=== PATIENT | female | born 1970 | race Caucasian/White ===

== ENCOUNTER → 2020-06-10 | Outpatient (CLI) | payer OTHER ==
--- NOTE | 2020-06-10 16:36 | KCIC ---
BILATERAL SCREENING MAMMOGRAM, 3-D History: Routine screening. Comparison: Bilateral mammogram January 03, 2016, . Technique: MLO and CC digital tomosynthesis (3D) images obtained. Radiologist reviewed these images on dedicated workstation. Findings: Breast Tissue Density B : There are scattered areas of fibroglandular density. Bilateral glandular nodularity is without significant change from prior study. There is a left axilla ry lymph node containing calcification, stable. There are no dominant masses, suspicious microcalcifications or architectural distortion. IMPRESSION: No mammographic evidence of malignancy. Recommend routine screening. BI-RADS category 2: Benign findings. The images were reviewed with computer-aided detection. Patient information is entered into reminder system with a target due date for the next screening [facility] mogram. Mammography is the most sensitive method for finding small breast cancers, but it does not detect the m all and is not a substitute for careful clinical examination. A negative mammogram does not negate a clinically suspicious finding and should not result in delay in biopsying a clinically suspicious a bnormality. "Our facility is accredited by the [employer] Mammography Program." Electronically signed by: Byron Mckeon MD (06/10/2020 4:33 PM) [id number]
== END ==
LOC: KCIC MAMMO 08:01
PROVIDERS: ATTEND Family Medicine
DX: Z12.31 Encounter for screening mammogram for malignant neoplasm of breast (principal)
CPT/HCPCS: 77063; 77067